=== PATIENT | female | born 1995 | race Caucasian/White ===

== ENCOUNTER 2023-09-25 11:40 | Outpatient (CLI) | payer BC ==
[~2023-09-25] VITALS: Ht 167.6 cm; Wt 110.5 kg
[~2023-09-25 11:40] MED LIST: AMOXICILLIN875 MG PO; PROMETHAZINE12.5 M5 PO; ZOFRAN 4MG T4 MG/TAB PO
[2023-09-25] MEDS ORDERED: PROTONIX20 MG PO (11:58)
[2023-09-25] MEDS ORDERED: UNISOM25 MG PO (11:58)
[2023-09-25] MEDS ORDERED: LR 1,000 ML IV PRN (12:00)
[2023-09-25 12:30] VITALS: BP 121/78; PULSE 93; TEMP 98.6
== END 2023-09-25 13:00 | disposition home or self-care (01) ==
LOC: LDRO 11:40
DX: Z34.93 Encounter for supervision of normal pregnancy, unspecified, third trimester (principal); Z3A.32 32 weeks gestation of pregnancy

== ENCOUNTER 2023-11-20 15:29 | Emergency (ER) | payer BC ==
[~2023-11-20] VITALS: Ht 167.6 cm; Wt 120.5 kg
[~2023-11-20 15:29] MED LIST changes: +PROTONIX20 MG PO; +UNISOM25 MG PO
[2023-11-20 15:35] VITALS: TEMP 98.6
[2023-11-20 16:27] VITALS: BP 140/90; PULSE 95
== END 2023-11-20 16:32 | disposition home or self-care (01) ==
LOC: COL.ER 15:29
DX: O22.43 Hemorrhoids in pregnancy, third trimester (principal); Z91.040 Latex allergy status; Z3A.39 39 weeks gestation of pregnancy

== ENCOUNTER 2023-12-02 12:42 | Inpatient (IN) | payer BC ==
[2023-12-02] VITALS (42 sets, daily range): BP systolic 92–145; BP diastolic 50–93; PULSE 66–103; TEMP 97.7–98.1
[~2023-12-02] VITALS: Ht 167.6 cm; Wt 118.6 kg
[2023-12-02] MEDS ORDERED: LR 1,000 ML IV SCH (12:45)
--- NOTE | 2023-12-02 13:30 | NUR ---
Pt and spouse present ambulatory to unit at 1235 for induction of labor. Pt changes into gown, EFM explained and placed, VS taken. Pt denies leaking of fluid, vaginal bleeding and contractions, reports good movement. IV started in LH, labs drawn, LR started per orders. Consents discussed and signed, assessments complete. Process of induction discussed with patient and spouse, both deny questions at this time. Pt declines SVE. FHR cat 1, contractions noted on monitor, moderate in palpation, pt denies feeling these. Report given to ARTURO Sifuentes, who assumes care of pt at this time.
[2023-12-02] MEDS ORDERED: LR & Oxytocin 500 ML IV ONE (13:45)
[2023-12-02 13:55] LABS: BASO % 0.2 % (0.0-2.0); EOS # 0.1 K/mm3 (0.0-0.7); EOS % 1.1 % (0.0-4.0); GRAN # 6.5 K/mm3 (1.4-6.5); GRAN % 71.5 % (42.2-75.2); HEMOGLOBIN 11.6 g/dl (12.5-16.0); LYMPH # 1.8 K/mm3 (1.2-3.4); LYMPH % 19.9 % (20.0-51.0); MEAN CELL VOLUME 82 fl (80.0-100.0); MEAN CORPUSCULAR HEMOGLOBIN 28 pg (27-31); MEAN CORPUSCULAR HGB CONC 33 g/dl (33.0-37.0); MEAN PLATELET VOLUME 13.5 fl (7.4-10.4); MONO # 0.6 K/mm3 (0.1-0.6); MONO % 6.9 % (1.7-9.3); PLATELET COUNT 228 K/mm3 (130-400); RED BLOOD COUNT 4.21 M/mm3 (4.10-5.30); REDCELL DISTRIBUTION WIDTH-CV 14.2 % (11.5-14.5)
[2023-12-02 13:56] LABS: HEMATOCRIT 34.7 % (37.0-47.0)
--- NOTE | 2023-12-02 14:15 | NUR ---
1413- Pt on BB at bedside. EFM and TOCO adjusted by this RN.
--- NOTE | 2023-12-02 17:15 | NUR ---
1655- Pt repositioned to sitting on side of bed for epidural placement. Shital, SELENA at bedside. 1705- Single shot, see anesthesia record 1706- Test dose, Pt tolerated well. 1712- Pt assisted to semi-fowlers with WL, EFM and TOCO adjusted. Pt tolerated procedure well.
[2023-12-02] MEDS ORDERED: Naloxone 0.4 MG/ML VIAL IV PRN (17:30)
[2023-12-02] MEDS ORDERED: ePHEDrine 50 MG/10 ML VIAL IV PRN (17:30)
[2023-12-02] MEDS ORDERED: diphenhydrAMINE 25 MG CAP PO PRN (17:30)
[2023-12-02] MEDS ORDERED: diphenhydrAMINE 50 MG/ML 1 ML VIAL IV PRN (17:30)
[2023-12-02] MEDS ORDERED: Ondansetron 4 MG/2 ML VIAL IV PRN (17:30)
--- NOTE | 2023-12-02 18:45 | NUR ---
Recurrent variable decelerations down to 60 bpm with spontaneous return to baseline after contraction. Pt repositioned to right lateral. SVE 3-4/75/-3. Pitocin decreased to 8 mu/min.
[2023-12-03] VITALS (50 sets, daily range): BP systolic 90–133; BP diastolic 39–94; PULSE 65–96; TEMP 97.6–99.9
--- NOTE | 2023-12-03 04:30 | NUR ---
Pt called out stating she is uncomfortable and wants to be repositioned. SVE performed at 0430 /-1, pt repositioned to left lateral with pillow support. Prolonged deceleration down to 90 bpm from 429 - 439. Pt repositioned back to right lateral with left leg in stirrup, additional staff to bedside. Pitocin decreased to 10 mu/min at 0438.
--- NOTE | 2023-12-03 04:52 | NUR ---
Recurrent late decelerations down to 100 bpm noted. On the phone with Dr. Kumar at this time. Telephone orders to stop pitocin for 30 minutes, call physician if unable to restart pitocin after 30 minutes.
--- NOTE | 2023-12-03 05:30 | NUR ---
Category 1 FHR tracing obtained. Pitocin restarted at 4 mu/min.
--- NOTE | 2023-12-03 08:10 | NUR ---
0805DR RAF AT BEDSIDE TO DISCUSS POC, OPTIONS WITH PT. [id number] PER DR CARBONE. UNCHAGED. /-1, WITH SOME MILD SWELLING PRESENT ON MOMS RIGHT SIDE OF CERVIX. 0810DR JOSIESTPIOTR AND PT DISCUSS. PT AGREES TO PROCEED WITH AT THIS TIME. DECISION TIME MARKED AT 0810. 0812DR RAF AND PT DISCUSS HOW THINGS WILL PROCEED FROM HERE. PT VERBALIZES UNDERSTANDING. PITOCIN TURNED OFF AT THIS TIME PER VORB FROM DR CARBONE. 0815DR RAF GIVES VORB TO KEEP REPOSITIONING PT, BUT KEEP HER COMFORTABLE. KEEP HER NPO. AND TO TRY LET HER MAYBE GET SOME SLEEP. PLANNING ON THE FOR 12.
[2023-12-03] MEDS ORDERED: Ondansetron 4 MG/2 ML VIAL IV PRN (12:45)
[2023-12-03] MEDS ORDERED: Magnes Hydrox (MOM) 80 MG/ML 30 ML CUP PO PRN (12:45)
[2023-12-03] MEDS ORDERED: Loratadine 10 MG TAB PO PRN (12:45)
[2023-12-03] MEDS ORDERED: LR 1,000 ML IV PRN (12:45)
[2023-12-03] MEDS ORDERED: Naloxone 0.4 MG/ML VIAL IV PRN (12:45)
[2023-12-03] MEDS ORDERED: Measles/Mumps/Rubella Virus Vaccine Live w Diluent 0.5 ML VIAL SQ SCH (12:45)
[2023-12-03] MEDS ORDERED: Sennosides/Docusate 8.6-50 MG TAB PO SCH (17:00)
--- NOTE | 2023-12-03 17:55 | NUR ---
1547 I recieved report from Candy and I am assuming care of patient.
[2023-12-03] MEDS ORDERED: Ibuprofen 800 MG TAB PO SCH (19:00)
[2023-12-03] MEDS ORDERED: traZODone 50 MG TAB PO PRN (21:00)
[2023-12-04 00:05] VITALS: BP 89/40; PULSE 81; TEMP 97.8
[2023-12-04 04:30] VITALS: BP 103/43; PULSE 66; TEMP 97.5
[2023-12-04 08:45] VITALS: BP 111/74; PULSE 64; TEMP 97.7
[2023-12-04] MEDS ORDERED: IBU800 M1 PO (08:45)
[2023-12-04] MEDS ORDERED: NORCO 325 MG-51 TAB PO (08:45)
[2023-12-04] MEDS ORDERED: Rho(D) Imm Globulin 1,500 UNITS (300 MCG)/2 ML SYRINGE IV\\IM SCH (09:10)
--- NOTE | 2023-12-31 13:52 | NUR ---
DOWNTIME NOTE: An Electronic Health Record (EHR) downtime event occurred during this patient's care. For legal medical record information generated during the downtime period, please reference the patient's legal medical record. Paper or scanned documentation has been incorporated into the legal medical record which is maintained in accordance with Health Information Management (HIM) and record retention policies.
== END 2023-12-05 19:05 | disposition home or self-care (01) | DRG 788 ==
LOC: LDR 12:42 → OB 18:41
PROVIDERS: ADMIT Student in an Organized Health Care Education/Training Program
PROC: 10D00Z1 Extraction of Products of Conception, Low, Open Approach (ICD-10-PCS; principal; 2023-12-03)
PROC: 3E033VJ Introduction of Other Hormone into Peripheral Vein, Percutaneous Approach (ICD-10-PCS; 2023-12-03)
PROC: 10907ZC Drainage of Amniotic Fluid, Therapeutic from Products of Conception, Via Natural or Artificial Opening (ICD-10-PCS; 2023-12-03)
DX: O48.0 Post-term pregnancy (principal); Z3A.40 40 weeks gestation of pregnancy; Z37.0 Single live birth; O99.214 Obesity complicating childbirth; O76 Abnormality in fetal heart rate and rhythm complicating labor and delivery; O26.893 Other specified pregnancy related conditions, third trimester; O69.81X0 Labor and delivery complicated by cord around neck, without compression, not applicable or unspecified; Z91.040 Latex allergy status; Z67.41 Type O blood, Rh negative
CPT/HCPCS: J2405; J2590; J2791; J7120